=== PATIENT | male | born 1995 | race Caucasian/White ===

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

== ENCOUNTER 2018-04-13 00:23 | Emergency (ER) | payer BC ==
[2018-04-13] MEDS ORDERED: KETOROLAC 30 MG/1 ML SDV IVP ONE (00:44)
[2018-04-13] MEDS ORDERED: NS 1,000 ML IV ONE (00:44)
--- NOTE | 2018-04-13 00:47 | EDPHY ---
H & P Stated Complaint: ABD AND R FLANK PAIN 1 DAY, WITH DIARRHEA Time Seen by Provider: 04/13/18 00:29 HPI/ROS: HPI The patient presents with right-sided mid abdominal pain and right flank pain which have been present for the last 1 day. Symptoms began upon awakening this morning and have been intermittent ever since. He is experiencing sharp pain in his right mid abdomen lateral to his umbilicus and right flank which is worse with movement or inspiration. He has had about 3-4 episodes of watery stool. As he has felt chills throughout the day. He has not had any vomiting. He has decreased appetite. He took ibuprofen and Tums without any improvement in his symptoms.. REVIEW OF SYSTEMS 10 systems were reviewed and negative with the exception of the elements mentioned in the history of present illness. 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 PHYSICAL General Appearance: Alert, no distress Eyes: Pupils equal and round no pallor or injection ENT, Mouth: Mucous membranes moist Respiratory: There are no retractions, lungs are clear to auscultation Cardiovascular: Regular rate and rhythm Gastrointestinal: Abdomen is soft and tender in his right upper quadrant with no rebound or guarding; right flank is nontender to palpation Neurological: A&O, moves all extremities Skin: Warm and dry, no rashes Musculoskeletal: Neck is supple non tender Extremities: symmetrical, full range of motion Psychiatric: Patient is oriented X 3, there is no agitation Source: Patient Exam Limitations: No limitations - Personal History Current Tetanus/Diphtheria Vaccine: Yes Current Tetanus Diphtheria and Acellular Pertussis (TDAP): Yes - Medical/Surgical History Hx Asthma: Yes Hx Chronic Respiratory Disease: No Hx Diabetes: No Hx Cardiac Disease: No Hx Renal Disease: No Hx Cirrhosis: No Hx Alcoholism: No Hx HIV/AIDS: No Hx Splenectomy or Spleen Trauma: No Other PMH: asthma - Social History Smoking Status: Never smoked Constitutional: Initial Vital Signs Temperature (C) 36.9 C 04/13/18 00:25 Heart Rate 102 H 04/13/18 00:25 Respiratory Rate 18 04/13/18 00:25 Blood Pressure 145/78 H 04/13/18 00:25 O2 Sat (%) 96 04/13/18 00:25 O2 Delivery Mode Room Air Allergies/Adverse Reactions: No Known Allergies Allergy (Unverified 04/13/18 00:28) Home Medications: Medication Instructions Recorded Cetirizine [ZyrTEC 10 mg (*)] 04/13/18 Medical Decision Making - Diagnostics Imaging Results: Right upper quadrant ultrasound is unremarkable, no biliary disease visualized. CT abdomen pelvis demonstrates mesenteric adenitis likely. Appendix appears normal. Both of these studies were discussed with the radiologist dean of instruction Dr. Ramirez. Chest x-ray single view demonstrates no pneumothorax, no pleural effusion, no infiltrate, interpreted by me, radiology interpretation pending. Imaging: Discussed imaging studies w/ procurement internship Radiologist, I viewed and interpreted images myself Differential Diagnosis: 22-year-old healthy male presents with 1 day of right-sided abdominal pain and flank pain which is pleuritic and worse with movement associated with chills and diarrhea. Differential diagnosis includes appendicitis, biliary colic, cholecystitis, mesenteric adenitis, pyelonephritis, renal colic, pleural effusion, pneumonia. In the emergency department, patient was given IV fluids and Toradol for pain with some improvement in his symptoms. Labs were checked and were normal. Right upper quadrant ultrasound was normal. We discussed risks and benefits of CT scan. Patient has decided to proceed with CT scan. This demonstrated mesenteric adenitis with no evidence of appendicitis. UA was normal. Chest x-ray is also normal. He felt well enough to go home. I have encouraged him to use anti-inflammatory medications and have educated him on the diagnosis of mesenteric adenitis. - Data Points Laboratory Results: Laboratory Results 04/13/18 00:34 04/13/18 00:34 Medications Given: Discontinued Medications Sodium Chloride (Ns) 1,000 mls @ 0 mls/hr IV EDNOW ONE; Wide Open PRN Reason: Protocol Stop: 04/13/18 00:45 Last Admin: 04/13/18 00:49 Dose: 1,000 mls Ketorolac Tromethamine (Toradol) 15 mg IVP EDNOW ONE Stop: 04/13/18 00:45 Last Admin: 04/13/18 00:48 Dose: 15 mg Departure - Departure Disposition: Home, Routine, Self-Care Clinical Impression: Mesenteric adenitis Condition: Good Instructions: Mesenteric Adenitis (ED) Additional Instructions: Please make sure to drink plenty of fluids. I would like for you to follow up with the [facility] in 1-2 days. Referrals: [facility] ,. [Clinic] - As per Instructions Stand Alone Forms: School Excuse
[2018-04-13 00:59] LABS: PLATELET COUNT 200 10^3/uL (150-400)
[2018-04-13] MEDS ORDERED: IOPAMIDOL (ISOVUE-300) 100 ML BTL ONE (02:13)
[2018-04-13 02:48] VITALS: BP 120/64
== END 2018-04-13 02:49 | disposition home or self-care (01) ==
DX: I88.0 Nonspecific mesenteric lymphadenitis (principal); E86.9 Volume depletion, unspecified
CPT/HCPCS: 96374; J1885; Q9967